=== PATIENT | male | born 1965 | race Caucasian/White ===

== ENCOUNTER 2017-01-09 13:29 | Emergency (ER) | payer OTHER ==
[~2017-01-09] VITALS: Ht 177.8 cm; Wt 97.7 kg
[2017-01-09 13:31] VITALS: BP 138/80; PULSE 76; RESP 20; TEMP 98; O2SAT 98
--- NOTE | 2017-01-09 14:11 | PD ---
Physical Exam Time Seen by Provider: 14:09 Narrative 51 /o male presents with R shoulder pain, paresthesias in right forearm/hand. 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 VSS Seen at triage desk. Awaiting bed placement. Data Data Last Documented VS Vital Signs Date Time Temp Pulse Resp B/P Pulse Ox O2 Delivery O2 Flow Rate FiO2 01/09/17 13:31 98.0 76 20 138/80 98 Room Air [facility] Medical Record Reviewed: Yes Supervised Visit with SLADE: Cristobal Moreira January 09, 2017 14:11
[2017-01-09] MEDS ORDERED: ORPHENADRINE INJ 60 MG/2 ML AMP IM ONE (14:30)
[2017-01-09] MEDS ORDERED: KETOROLAC TROMETHAMINE 60 MG/2 ML (IM) VIAL IM ONE (14:30)
--- NOTE | 2017-01-09 14:57 | PD ---
HPI Chief Complaint: Injury Time Seen by Provider: 14:23 Travel History International Travel<30 days: No Contact w/Intl Traveler<30days: No Traveled to known affect area: No History of Present Illness HPI Patient is a 51-year-old male presenting to emergency for evaluation of right shoulder pain. Patient states he was carrying a 24 foot ladder at work this morning when the ladder rung stabbed on a tree branch causing him to jerk back. Patient states that his right arm was positioned overhead in order to stabilize the ladder and when it got stuck and it jerked backwards. Patient reports his pain is a 7 out of 10 and described as aching and throbbing. He denies any neck pain, headache, chest pain, shortness of breath. He has no other complaints at this time. Patient's past medical history significant for thyroid disease, hyperlipidemia, AMI. PFSH Past Medical History COPD: Yes Coronary Artery Disease: Yes Myocardial Infarction: Yes Thyroid Disease: Yes Tetanus Vaccination: < 5 Years Influenza Vaccination: Yes Past Surgical History Genitourinary Surgery: Yes (vasectomy) Other Surgery: Yes (lipoma) Family History Family Myocardial Infarction: Yes Family Hypercholesterolemia: Yes Social History Alcohol Use: No Tobacco Use: No Substance Use: No Allergies-Medications (Allergen,Severity, Reaction): Coded Allergies: Morphine (Verified Allergy, Unknown, 01/09/17) nausea Reported Meds & Prescriptions Reported Meds & Active Scripts Active Flexeril (Cyclobenzaprine HCl) 10 Mg Tab 10 Mg PO TID PRN 10 Days Ibuprofen 800 Mg Tab 800 Mg PO Q8H PRN 10 Days Review of Systems Except as stated in HPI: all other systems reviewed are Neg Musculoskeletal: Positive: Myalgias, Arthralgias, Limited ROM, Pain Physical Exam Narrative GENERAL: Well-developed, well-nourished, alert male. Appears uncomfortable, in no acute distress. SKIN: Warm and dry. HEAD: Atraumatic. Normocephalic. EYES: Pupils equal and round. No scleral icterus. No injection or drainage. ENT: No nasal bleeding or discharge. Mucous membranes pink and moist. NECK: Trachea midline. No JVD. CARDIOVASCULAR: Regular rate and rhythm. RESPIRATORY: No accessory muscle use. Clear to auscultation. Breath sounds equal bilaterally. GASTROINTESTINAL: Abdomen soft, non-tender, nondistended. Hepatic and splenic margins not palpable. MUSCULOSKELETAL: Extremities without clubbing, cyanosis, or edema. No obvious deformities. Patient is able to abduct his arm to the 90 position. 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 Mild tenderness to palpation on right shoulder NEUROLOGICAL: Awake and alert. No obvious cranial nerve deficits. Motor grossly within normal limits. Five out of 5 muscle strength in the arms and legs. Normal speech. PSYCHIATRIC: Appropriate mood and affect; insight and judgment normal. Data Data Last Documented VS Vital Signs Date Time Temp Pulse Resp B/P Pulse Ox O2 Delivery O2 Flow Rate FiO2 01/09/17 14:20 16 96 Room Air 01/09/17 13:31 98.0 76 138/80 Orders Ketorolac Inj (Toradol Inj) (01/09/17 14:30) Orphenadrine Inj (Norflex Inj) (01/09/17 14:30) Shoulder, Complete (>2vws) (01/09/17 ) [facility] Medical Decision Making Medical Screen Exam Complete: Yes Emergency Medical Condition: Yes Interpretation(s) Vital Signs Date Time Temp Pulse Resp B/P Pulse Ox O2 Delivery O2 Flow Rate FiO2 01/09/17 14:20 16 96 Room Air 01/09/17 13:31 98.0 76 20 138/80 98 Room Air Differential Diagnosis Rotator cuff tear versus fracture versus dislocation versus sprain versus strain versus other Narrative Course Patient is a 51-year-old male presenting to the emergency department for evaluation of right shoulder pain after injuring it carrying a ladder at work this morning. Patient's vital signs are stable, imaging ordered and pending. Patient given Toradol and Norflex for pain. at bedside. Diagnosis Primary Impression: Shoulder sprain Qualified Code: S43.401A - Sprain of right shoulder, unspecified shoulder sprain type, initial encounter Referrals: Orthopaedic Surgeon Primary Care Physician Patient Instructions: General Instructions, Shoulder Pain (ED), Shoulder Sprain (ED) Departure Forms: Tests/Procedures, Work Release Enter return to work date: January 12, 2017 Additional Instructions: Follow-up with your primary doctor/orthopedic surgeon Return to emergency department for any new or worsening symptoms Take medications as directed, continue range of motion exercises, apply warm moist heat to affected area Med/Other Pt SpecificInfo: Prescription(s) given Scripts Cyclobenzaprine (Flexeril)10 Mg Tab10 Mg PO TID PRN (MUSCLE SPASM) 10 Days Ref 0 Prov:Ariana Miranda 01/09/17 Ibuprofen 800 Mg Dss527 Mg PO Q8H PRN (Pain/Inflammation) 10 Days Ref 0 Prov:Ariana Miranda 01/09/17 Disposition: 01 DISCHARGE HOME Condition: Stable Ariana Miranda January 09, 2017 14:56
[2017-01-09] MEDS ORDERED: IBUP800T23 PO (14:58)
[2017-01-09] MEDS ORDERED: CYCL1TAB29 PO (14:58)
--- NOTE | 2017-01-09 15:09 | RADRPT ---
EXAM DATE/TIME: 01/09/2017 14:42 [facility] COMPARISON: No previous studies available for comparison. INDICATIONS : Injured right shoulder today while carrying a ladder, very limited movement due to severe pain, anter ior shoulder appears bruised MEDICAL HISTORY : None. SURGICAL HISTORY : None. ENCOUNTER: Initial ACUITY: 1 day PAIN SCORE: 10/10 LOCATION: Right shoulder FINDINGS: Multiple view examination of the right shoulder demonstrates no evidence of fracture or dislocation. The glenohumeral and acromioclavicular joints are maintained. There is normal range of motion betwe en internal and external rotation. Bony mineralization is normal. CONCLUSION: Unremarkable examination of the right shoulder. Marcel Ren MD on January 09, 2017 at 15:05 Board Certified Radiologist. This report was verified electronically.
[2017-01-09 16:00] VITALS: RESP 16
[2017-01-09 16:21] VITALS: BP 139/72
== END 2017-01-09 16:30 | disposition home or self-care (01) ==
LOC: NEPD 13:29
DX: S43.401A Unspecified sprain of right shoulder joint, initial encounter (principal); I25.2 Old myocardial infarction; J44.9 Chronic obstructive pulmonary disease, unspecified; W22.8XXA Striking against or struck by other objects, initial encounter; Y93.89 Activity, other specified; Y92.89 Other specified places as the place of occurrence of the external cause; Y99.0 Civilian activity done for income or pay
CPT/HCPCS: 73030; 96372; 99283; J1885; J2360